=== PATIENT | male | born 1995 | race Caucasian/White ===

== ENCOUNTER 2019-04-18 00:08 | Emergency (ER) | payer OTHER ==
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
[2019-04-18 03:14] VITALS: BP 116/75
== END 2019-04-18 03:11 | disposition home or self-care (01) ==
LOC: ED 00:08
DX: S02.32XA Fracture of orbital floor, left side, initial encounter for closed fracture (principal); W50.0XXA Accidental hit or strike by another person, initial encounter; Y93.75 Activity, martial arts; Y92.9 Unspecified place or not applicable
CPT/HCPCS: 70486; 99282

== ENCOUNTER 2019-04-18 13:58 | Emergency (ER) | payer OTHER ==
[2019-04-18 15:19] VITALS: BP 119/71
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
== END 2019-04-18 15:16 | disposition home or self-care (01) ==
LOC: ED 13:58
DX: S02.85XD Fracture of orbit, unspecified, subsequent encounter for fracture with routine healing (principal); R20.0 Anesthesia of skin; W50.0XXD Accidental hit or strike by another person, subsequent encounter
CPT/HCPCS: 99282